=== PATIENT | female | born 1995 | race Caucasian/White ===

== ENCOUNTER 2024-03-20 17:32 | Emergency (ER) | payer OTHER ==
[2024-03-20] MEDS: Bacitracin Oint 1 GM U/D Packet TOP ONE (20:42)
== END 2024-03-20 20:53 | disposition home or self-care (01) ==
LOC: JP.ED 17:32
DX: S53.401A Unspecified sprain of right elbow, initial encounter (principal); Z87.891 Personal history of nicotine dependence; Z79.899 Other long term (current) drug therapy; V86.65XA Passenger of 3- or 4- wheeled all-terrain vehicle (ATV) injured in nontraffic accident, initial encounter
CPT/HCPCS: 73080-26-RT; 73080-RT; 73110-26-RT; 73110-RT; 99283